=== PATIENT | male | born 1965 | race Caucasian/White ===

== ENCOUNTER 2018-11-15 10:58 | Inpatient (IN) | payer BC ==
[2018-11-16] MEDS ORDERED: DEXAMETHASONE 4 MG/ML 5 ML INJ (07:00)
[2018-11-16] MEDS ORDERED: SUGAMMADEX SODIUM 200 MG/2 ML VIAL IV (07:00)
[2018-11-16] MEDS ORDERED: ONDANSETRON 4 MG INJ (07:00)
[2018-11-16] MEDS ORDERED: DESFLURANE 15 MIN (07:00)
[2018-11-16] MEDS ORDERED: CEFAZOLIN 1 GM INJ (07:00)
[2018-11-16] MEDS ORDERED: ONDANSETRON 4 MG INJ IV (11:00)
[2018-11-16] MEDS ORDERED: morphine 2 MG INJ IV (11:00)
[2018-11-16] MEDS ORDERED: PROPOFOL 20 ML (12:22)
[2018-11-16] MEDS ORDERED: SUCCINYLCHOLINE CHLORIDE 100 MG/5 ML SYG IV (12:22)
[2018-11-16] MEDS ORDERED: METOCLOPRAMIDE 10 MG INJ (12:22)
[2018-11-16] MEDS ORDERED: ROCURONIUM 50 MG INJ (12:22)
[2018-11-16] MEDS ORDERED: FENTAnyl 50 MCG/ML VIAL ×2 (12:22→14:10)
[2018-11-16] MEDS ORDERED: LIDOCAINE 2% (SDV) 5 ML INJ (12:22)
[2018-11-16 12:23] LABS: ADD MAN DIFF? NO
[2018-11-16] MEDS ORDERED: MIDAZOLAM 1 MG/ML 2 ML INJ (12:23)
[2018-11-16 12:26] LABS: BASOPHILS % 0.4 % (0.0-2.0); EOSINOPHILS # 0.3 10^3/ul (0.0-0.5); EOSINOPHILS % 3.7 % (0.0-7.0); HEMATOCRIT 52.8 % (42.0-52.0); HEMOGLOBIN 18.2 g/dl (14.0-18.0); LYMPHOCYTES # 1.5 10^3/ul (0.8-2.9); LYMPHOCYTES % 18.1 % (15.0-51.0); MEAN CORPUSCULAR HEMOGLOBIN 31.6 pg (29.0-33.0); MEAN CORPUSCULAR HGB CONC 34.5 g/dl (32.0-37.0); MEAN CORPUSCULAR VOLUME 91.7 fl (82.0-101.0); MEAN PLATELET VOLUME 10.8 fl (7.4-10.4); MONOCYTE # 0.7 10^3/ul (0.3-0.9); MONOCYTES % 8.4 % (0.0-11.0); NEUTROPHIL # 5.8 10^3/ul (1.6-7.5); NEUTROPHILS % 69.2 % (39.0-77.0); PLATELET COUNT 173 10^3/UL (140-415); RED BLOOD COUNT 5.76 10^6/ul (4.70-6.10); RED CELL DISTRIBUTION WIDTH 13.7 % (11.5-14.5)
[2018-11-16 12:26] LABS: WHITE BLOOD COUNT 8.4 10^3/ul (4.8-10.8)
[2018-11-16 12:40] LABS: ADD UMIC YES; UR ASCORBIC ACID NEGATIVE (NEGATIVE); UR BILIRUBIN (Dip) NEGATIVE (NEGATIVE); UR BLOOD (Dip) NEGATIVE (NEGATIVE); UR CLARITY CLEAR (CLEAR); UR COLOR YELLOW (YELLOW); UR GLUCOSE (Dip) NEGATIVE (NEGATIVE); UR KETONES (Dip) NEGATIVE (NEGATIVE); UR LEUKOCYTE ESTERASE (Dip) TRACE Leu/ul (NEGATIVE); UR MUCUS MODERATE /HPF (NONE SEEN); UR NITRITE (Dip) NEGATIVE (NEGATIVE); UR RBC 2 /HPF (0-5); UR SPECIFIC GRAVITY (Dip) 1.015 (1.003-1.030); UR TOTAL PROTEIN (Dip) NEGATIVE (NEGATIVE); UR UROBILINOGEN (Dip) NEGATIVE (NEGATIVE); UR WBC 10 /HPF (0-5)
[2018-11-16 12:42] LABS: ALANINE AMINOTRANSFERASE 33 IU/L (13-69); ALBUMIN 4.6 g/dl (3.3-4.9); ALBUMIN/GLOBULIN RATIO 1.24; ALKALINE PHOSPHATASE 87 IU/L (42-121); ANION GAP 8 (5-13); ASPARTATE AMINO TRANSFERASE 32 IU/L (15-46); BILIRUBIN,INDIRECT 0.2 mg/dl (0-1.1); BILIRUBIN,TOTAL 0.2 mg/dl (0.2-1.3); BLOOD UREA NITROGEN 15 mg/dl (7-20); CALCIUM 10.1 mg/dl (8.4-10.2); CARBON DIOXIDE 30 mmol/L (21-31); CHLORIDE 103 mmol/L (97-110); CREATININE 0.94 mg/dl (0.61-1.24); Estimated GFR > 60 mL/min (>60); GLUCOSE 108 mg/dl (70-220); POTASSIUM 3.6 mmol/L (3.5-5.1); SODIUM 141 mmol/L (135-144); TOTAL PROTEIN 8.3 g/dl (6.1-8.1)
[2018-11-16 12:46] LABS: INR 0.86; PROTIME 11.8 Sec (11.9-14.9); PT RATIO 0.9
[2018-11-16 12:47] LABS: PARTIAL THROMBOPLASTIN TIME 31.1 Sec (23.0-35.0)
[2018-11-16] MEDS ORDERED: MEPERIDINE 25 MG INJ IV (13:30)
[2018-11-16] MEDS ORDERED: FENTAnyl 50 MCG/ML VIAL IV (13:30)
[2018-11-16] MEDS ORDERED: hydrALAzine 20 MG INJ IV (13:30)
[2018-11-16] MEDS ORDERED: LORAZEPAM 2 MG INJ IV (13:30)
[2018-11-16] MEDS ORDERED: IPRATROPIUM (NEB) 0.5 MG/2.5 ML AMP HHN (13:30)
[2018-11-16] MEDS ORDERED: MIDAZOLAM 1 MG/ML 2 ML INJ IV (13:30)
[2018-11-16] MEDS ORDERED: HALOPERIDOL 5 MG INJ IV (13:30)
[2018-11-16] MEDS ORDERED: LABETALOL HCL 20MG INJ IV (13:30)
[2018-11-16] MEDS ORDERED: LEVALBUTEROL (NEB) 1.25 MG/0.5 ML AMP HHN (13:30)
[2018-11-16] MEDS ORDERED: HYDROmorphONE 1 MG/5 ML IV SYRINGE IV ×3 (13:30)
[2018-11-16] MEDS ORDERED: DIPHENHYDRAMINE 50 MG INJ IV (13:30)
[2018-11-16] MEDS: BUPIVACAINE 0.5% (SDV) 30 ML INJ (14:54)
[2018-11-16] MEDS: POLYMYXIN/BACITRACIN 1L IRRIG (14:54)
[2018-11-16] MEDS: THROMBIN 5000 UNIT VIAL (14:55)
[2018-11-16] MEDS: DEXAMETHASONE 4 MG/ML 1 ML INJ IV ×3 (16:40→23:58)
[2018-11-16] MEDS: niCARdipine 50 MG in SOD CHLORIDE 0.9% 480 ML IV (16:48)
[2018-11-16] MEDS: FENTAnyl 50 MCG/ML VIAL IV ×3 (17:06→18:45)
[2018-11-16] MEDS: ONDANSETRON 4 MG INJ IV (17:06)
[2018-11-16 17:29] LABS: ADD UMIC YES; UR ASCORBIC ACID NEGATIVE (NEGATIVE); UR BILIRUBIN (Dip) NEGATIVE (NEGATIVE); UR BLOOD (Dip) NEGATIVE (NEGATIVE); UR CLARITY CLEAR (CLEAR); UR COLOR YELLOW (YELLOW); UR GLUCOSE (Dip) NEGATIVE (NEGATIVE); UR KETONES (Dip) NEGATIVE (NEGATIVE); UR LEUKOCYTE ESTERASE (Dip) TRACE Leu/ul (NEGATIVE); UR MUCUS FEW /HPF (NONE SEEN); UR NITRITE (Dip) NEGATIVE (NEGATIVE); UR RBC 4 /HPF (0-5); UR SPECIFIC GRAVITY (Dip) 1.018 (1.003-1.030); UR TOTAL PROTEIN (Dip) 1+ mg/dl (NEGATIVE); UR UROBILINOGEN (Dip) NEGATIVE (NEGATIVE); UR WBC 7 /HPF (0-5)
[2018-11-16] MEDS: DEXTROSE 5%-LR 1,000 ML IV ×2 (17:40→19:00)
[2018-11-16] MEDS: BUPIVACAINE 0.5%/EPI (SDV) 30 ML INJ INJ (17:43)
[2018-11-16] MEDS: SOD CHLORIDE 0.9% 250 ML IV (19:03)
[2018-11-16] MEDS ORDERED: morphine SULFATE/PF (2 MG/2 ML) SYG IV (20:00)
[2018-11-16] MEDS: CLINDAMYCIN 600 MG/D5W (PMX) 50 ML IVPB (20:21)
[2018-11-16] MEDS: morphine SULFATE/PF (2 MG/2 ML) SYG IV (20:56)
[2018-11-16] MEDS: HYDROCODONE/APAP (5/325) TAB PO (21:36)
[2018-11-17] MEDS: METOPROLOL 5 MG INJ IV (01:16)
[2018-11-17] MEDS: DEXTROSE 5%-LR 1,000 ML IV ×3 (01:21→19:00)
[2018-11-17] MEDS: morphine SULFATE/PF (2 MG/2 ML) SYG IV ×2 (04:47→09:23)
[2018-11-17] MEDS: CLINDAMYCIN 600 MG/D5W (PMX) 50 ML IVPB ×3 (06:26→11:59)
[2018-11-17] MEDS: DEXAMETHASONE 4 MG/ML 1 ML INJ IV ×2 (06:26→11:58)
[2018-11-17 06:51] LABS: ANION GAP 13 (5-13); BLOOD UREA NITROGEN 15 mg/dl (7-20); CALCIUM 9.8 mg/dl (8.4-10.2); CARBON DIOXIDE 26 mmol/L (21-31); CHLORIDE 101 mmol/L (97-110); CREATININE 0.87 mg/dl (0.61-1.24); Estimated GFR > 60 mL/min (>60); GLUCOSE 155 mg/dl (70-220); POTASSIUM 3.6 mmol/L (3.5-5.1); SODIUM 140 mmol/L (135-144)
[2018-11-17] MEDS: HYDROCODONE/APAP (5/325) TAB PO ×3 (08:17→19:51)
[2018-11-17] MEDS: morphine 4 MG/ML VIAL IV (12:38)
[2018-11-17] MEDS: [UNRECOGNIZED DRUG - OTHER] XX (19:15)
[2018-11-18] MEDS: HYDROCODONE/APAP (5/325) TAB PO ×4 (07:30→22:47)
[2018-11-18] MEDS: [UNRECOGNIZED DRUG - OTHER] XX (09:00)
[2018-11-18] MEDS: NICOTINE (7 MG/24 HR) PATCH TRANSDERM (10:37)
[2018-11-18] MEDS: HYDROCHLOROTHIAZIDE 25 MG TAB PO (11:33)
[2018-11-18] MEDS: GABAPENTIN 300 MG CAP PO ×2 (12:57→21:09)
[2018-11-18] MEDS ORDERED: NICOTINE (7 MG/24 HR) PATCH TRANSDERM (21:00)
[2018-11-18] MEDS: ATORVASTATIN 40 MG TAB PO (21:09)
[2018-11-18] MEDS: CYCLOBENZAPRINE 10 MG TAB PO (23:26)
[2018-11-19] MEDS: CYCLOBENZAPRINE 10 MG TAB PO (07:39)
[2018-11-19] MEDS: HYDROCODONE/APAP (5/325) TAB PO ×2 (07:40→13:25)
[2018-11-19] MEDS: [UNRECOGNIZED DRUG - OTHER] XX (09:00)
[2018-11-19] MEDS: FOLIC ACID 1 MG TAB PO (09:12)
[2018-11-19] MEDS: ERGOCALCIFEROL (8000 UNITS/ML PO SYG) PO (09:12)
[2018-11-19] MEDS: NICOTINE (7 MG/24 HR) PATCH TRANSDERM (09:12)
[2018-11-19] MEDS: HYDROCHLOROTHIAZIDE 25 MG TAB PO (09:13)
[2018-11-19] MEDS: GABAPENTIN 300 MG CAP PO ×2 (09:13→13:25)
== END 2018-11-19 14:58 | disposition home or self-care (01) | DRG 471 ==
LOC: REC 10:58 → MS1 11-17 11:37 → REC 11-16 11:00 → ICU 11-16 16:40
PROC: 0RG10A0 Fusion of Cervical Vertebral Joint with Interbody Fusion Device, Anterior Approach, Anterior Column, Open Approach (ICD-10-PCS; principal; 2018-11-16 13:30)
PROC: 0RG20A0 Fusion of 2 or more Cervical Vertebral Joints with Interbody Fusion Device, Anterior Approach, Anterior Column, Open Approach (ICD-10-PCS; 2018-11-16 13:30)
PROC: 0RT30ZZ Resection of Cervical Vertebral Disc, Open Approach (ICD-10-PCS; 2018-11-16 13:30)
DX: M50.021 Cervical disc disorder at C4-C5 level with myelopathy (principal); G82.50 Quadriplegia, unspecified; M47.12 Other spondylosis with myelopathy, cervical region; M47.22 Other spondylosis with radiculopathy, cervical region; M48.02 Spinal stenosis, cervical region; I10 Essential (primary) hypertension; E78.5 Hyperlipidemia, unspecified; E66.9 Obesity, unspecified; Z68.31 Body mass index [BMI] 31.0-31.9, adult
CPT/HCPCS: 71045; 72050; 72141; 80048; 80053; 81001; 85025; 85610; 85730; 86850; 86900; 86901; 87081; 87086; 93005; 97110; 97116; 97162